=== PATIENT | female | born 1975 | race African-American/Black ===

== ENCOUNTER 2017-10-29 16:34 | Emergency (ER) | payer BC | END 2017-10-29 18:16 | disposition home or self-care (01) | LOC: ERS 16:34 | DX: S39.012A Strain of muscle, fascia and tendon of lower back, initial encounter (principal); S50.02XA Contusion of left elbow, initial encounter; J45.909 Unspecified asthma, uncomplicated; V89.2XXA Person injured in unspecified motor-vehicle accident, traffic, initial encounter | CPT/HCPCS: 99284 ==

== ENCOUNTER 2020-07-17 09:20 | Emergency (ER) | payer BC, OTHER ==
[2020-07-18 13:21] LABS: SARS-CoV-2 MS2 Positive; SARS-CoV-2 N Gene Positive; SARS-CoV-2 S Gene Positive; SARS-CoV-2 by NAA DETECTED (NotDetected); SARS-CoV-2 orf1ab Positive
== END 2020-07-17 10:20 | disposition home or self-care (01) ==
LOC: ERS 09:20
DX: U07.1 COVID-19 (principal); J45.909 Unspecified asthma, uncomplicated
CPT/HCPCS: 87635; 99283; U0003

== ENCOUNTER 2020-08-02 15:42 | Emergency (ER) | payer BC, OTHER ==
[2020-08-03 10:50] LABS: SARS-CoV-2 MS2 Positive; SARS-CoV-2 N Gene Positive; SARS-CoV-2 S Gene Positive; SARS-CoV-2 by NAA DETECTED (NotDetected); SARS-CoV-2 orf1ab Positive
== END 2020-08-02 16:37 | disposition home or self-care (01) ==
LOC: ERS 15:42
DX: U07.1 COVID-19 (principal); J45.909 Unspecified asthma, uncomplicated
CPT/HCPCS: 87635; 99283; U0003

== ENCOUNTER 2022-05-28 19:58 | Emergency (ER) | payer BC, SELFPAY | END 2022-05-28 20:47 | disposition home or self-care (01) | LOC: ERS 19:58 | DX: U07.1 COVID-19 (principal) | CPT/HCPCS: 99283; U0003; U0005 ==

== ENCOUNTER 2024-04-23 20:53 | Emergency (ER) | payer BC, SELFPAY ==
[2024-04-24] MEDS ORDERED: Loperamide HCl 2 MG CAP ONE (01:22)
[2024-04-24] MEDS ORDERED: Dicyclomine 20 MG TAB ONE (01:22)
== END 2024-04-24 01:28 | disposition home or self-care (01) ==
LOC: ERS 20:53
DX: A08.4 Viral intestinal infection, unspecified (principal); I10 Essential (primary) hypertension; R19.7 Diarrhea, unspecified
CPT/HCPCS: 99283